=== PATIENT | male | born 1975 | race Caucasian/White ===

== ENCOUNTER 2023-08-15 07:54 | Outpatient (CLI) | payer OTHER, SELFPAY ==
--- NOTE | ~2023-08-15 | PE_ITS ---
EXAMINATION: PET skull to mid thigh DATE: 08/15/2023 10:32 INDICATION: Multiple nodules of lung. TECHNIQUE: Blood glucose level was 141 mg/dL. 8.408 mCi of 18-fluorodeoxyglucose (18-FDG) was adminis tered i.v. Low dose computed tomography (CT) images were acquired from the base of the brain to the p roximal thighs for attenuation correction and anatomic localization. Automated exposure control was e mployed. Dose-length product (DLP) was 493 mGy-cm. Positron emission tomography (PET) images were acq uired in the same distribution. COMPARISON: None FINDINGS: Head/neck: There are no pathologically enlarged lymph nodes. Chest: There is mild peripheral rounded atelectasis in right middle lobe and right lower lobe. No ple ural effusion. The heart size is normal. There are coronary artery calcifications. No pericardial eff usion. There are old right rib fractures. Abdomen/pelvis/proximal thighs: The liver, gallbladder, spleen, pancreas, adrenal glands, and kidneys are normal. There are no dilated loops of bowel. There is mild right inguinal lymphadenopathy withou t increased activity, likely reactive. There are old fractures of the bilateral inferior and superior pubic rami, left parasymphyseal pubis, and the iliac bones. There is internal fixation of right iliu m and right sacroiliac joint. IMPRESSION: 1. No evidence of malignancy. Reviewed, dictated and finalized at location A.
[2023-08-15 08:22] LABS: Glucose Point of Care 141 mg/dl (65-105)
== END 2023-08-15 07:55 | disposition home or self-care (01) ==
PROVIDERS: Visit Provider Internal Medicine Pulmonary Disease
DX: R91.8 Other nonspecific abnormal finding of lung field (principal)
CPT/HCPCS: 78815; A9552